=== PATIENT | male | born 1965 | race Caucasian/White ===

== ENCOUNTER 2021-09-08 16:11 | Emergency (ER) | payer OTHER ==
[~2021-09-08] VITALS: Ht 162.6 cm; Wt 77.1 kg
[2021-09-08 16:16] VITALS: BP 112/66
--- NOTE | 2021-09-08 16:23 | NUR ---
PREBOOK SCRATCH ON R FOREHEAD, NO ACTIVE BLEEDING. PMH: UNKNOWN MEDS: UNKNOWN
--- NOTE | 2021-09-08 17:27 | NUR ---
PATIENT BIB [employer]. PATIENT EXAMINED BY DR. BORJAS. PATIENT MEDICALLY CLEARED AND RELEASED IN CUSTODY IN STABLE CONDITION. ORIGINAL PRE-BOOK FORM GIVEN TO OFFICER.
== END 2021-09-08 17:26 ==
LOC: MED 16:11 → EDBD 16:11 → MED 17:26
DX: S01.111A Laceration without foreign body of right eyelid and periocular area, initial encounter (principal); F10.129 Alcohol abuse with intoxication, unspecified; Y90.9 Presence of alcohol in blood, level not specified; X58.XXXA Exposure to other specified factors, initial encounter; Y93.89 Activity, other specified; Y92.89 Other specified places as the place of occurrence of the external cause; Y99.8 Other external cause status
CPT/HCPCS: 90715; 99283

== ENCOUNTER 2021-10-20 14:57 | Emergency (ER) | payer OTHER ==
[~2021-10-20] VITALS: Ht 167.6 cm; Wt 63.5 kg
[2021-10-20 15:02] VITALS: BP 121/79
--- NOTE | 2021-10-20 15:02 | NUR ---
PT IN CHAIR D
--- NOTE | 2021-10-20 15:16 | NUR ---
PT CURSING AT STAFF. PT UNCOOPERATIVE, NOT ANSWERING QUESTIONS. SECURITY CALLED.
--- NOTE | 2021-10-20 15:29 | NUR ---
DR CHRISTINE EVALUATING PT AT THIS TIME
--- NOTE | 2021-10-20 15:43 | NUR ---
Patient discharged with v/s stable. Written and verbal after care instructions given and explained. Ambulatory with steady gait. All questions addressed prior to discharge. Advised to follow up with PMD. Pt refused to sign d/c paper and stated he didnt want the papers.
== END 2021-10-20 15:43 | disposition home or self-care (01) ==
LOC: MED 14:57
DX: F10.129 Alcohol abuse with intoxication, unspecified (principal); Y90.9 Presence of alcohol in blood, level not specified
CPT/HCPCS: 99283